=== PATIENT | male | born 2000 | race Caucasian/White ===

== ENCOUNTER → 2023-06-05 10:56 | Outpatient (REF) | payer OTHER, SELFPAY | LOC: RAD 10:56 | PROVIDERS: ATTENDING PHYSICIAN Pediatrics | DX: J32.9 Chronic sinusitis, unspecified (principal); S42.90XA Fracture of unspecified shoulder girdle, part unspecified, initial encounter for closed fracture | CPT/HCPCS: 70220; 73030 ==

== ENCOUNTER 2023-06-16 11:17 | Outpatient (RCR) | payer OTHER, SELFPAY | END 2023-06-16 23:59 | disposition home or self-care (01) | LOC: RPT 11:17 | PROVIDERS: ATTENDING PHYSICIAN Pediatrics | DX: M75.80 Other shoulder lesions, unspecified shoulder (principal); Z73.6 Limitation of activities due to disability | CPT/HCPCS: 97112; 97162 ==

== ENCOUNTER → 2023-07-02 15:53 | Outpatient (REF) | payer OTHER, SELFPAY | LOC: RAD 15:53 | PROVIDERS: ATTENDING PHYSICIAN Otolaryngology; FAMILY PHYSICIAN Pediatrics | DX: J32.9 Chronic sinusitis, unspecified (principal) | CPT/HCPCS: 70486 ==